=== PATIENT | female | born 1955 | race Caucasian/White ===

== ENCOUNTER 2022-09-28 19:36 | Emergency (ER) | payer BC, OTHER ==
[2022-09-28 19:43] VITALS: BP 177/110; PULSE 121; RESP 18; TEMP 98.4; BMI 37.4
[2022-09-28] MEDS ORDERED: metroNIDAZOLE 250 MG TABLET PO ONE (20:36)
[2022-09-28] MEDS ORDERED: DOXYCYCLINE HYCLATE 100 MG CAPSULE PO ONE ×2 (20:36→20:41)
[2022-09-28] MEDS ORDERED: metroNIDAZOLE 250 MG TABLET ONE (20:42)
== END 2022-09-28 20:49 | disposition home or self-care (01) ==
LOC: FER 19:36
DX: S91.051A Open bite, right ankle, initial encounter (principal); W55.01XA Bitten by cat, initial encounter
CPT/HCPCS: 99283-25